=== PATIENT | female | born 1955 | race Caucasian/White ===

== ENCOUNTER 2021-10-21 12:09 | Inpatient (IN) | payer MEDICARE, OTHER ==
[2021-10-21 13:38] LABS: #Eosinphils 0.7 10x3/uL (0.0-0.5); #Monocytes 1.1 10x3/uL (0.0-1.1); #Neutrophils 10.6 10x3/uL (1.5-8.4); %Basophils 0.2 % (0.0-2.0); %Eosinophils 4.8 % (0.0-6.0); %Lymphocytes 8.8 % (18.0-47.0); %Monocytes 7.8 % (0.0-10.0); Hemoglobin 14.1 g/dL (12.0-15.5); Mean Corpuscular HGB CONC 33.6 g/dL (32.0-36.0); Mean Corpuscular Hemoglobin 29.5 pg (27.0-33.0); Mean Corpuscular Volume 87.9 fl (81.6-98.3); Mean Platelet Volume 11.6 fl (7.4-10.4); Platelet Count 244 10x3/uL (150-450); RBC Distribution Width 12.5 % (11.5-14.5); Red Blood Cell (RBC) Count 4.78 10x6/uL (3.90-5.03); White Blood Cell (WBC) Count 13.6 10x3/uL (3.5-10.5)
[2021-10-21 13:40] LABS: CK (CPK) 413 U/L (29-168); CRP (Inflammatory) Less than 0.50 mg/dL (= or < 0.5)
[2021-10-21] MEDS ORDERED: Piperacillin/Tazobactam 4.5 GM VIAL ONE (15:13)
[2021-10-21 15:54] LABS: ALT (SGPT) 80 U/L (8-55); AST (SGOT) 80 U/L (5-34); Albumin 3.8 g/dL (3.4-4.8); Alkaline Phosphatase 109 U/L (40-110); Anion Gap 16 mmol/L (10-20); BUN (Urea Nitrogen) 36 mg/dL (9.8-20.1); Bilirubin, Total 0.4 mg/dL (0.2-1.2); Calc. Creatinine Clearance 0 mL/min (70-130); Calcium 8.5 mg/dL (7.8-10.44); Carbon Dioxide 22 mmol/L (23-31); Chloride 108 mmol/L (98-107); Globulin 2.5 g/dL (2.4-3.5); Glucose 98 mg/dL (80-115); Potassium 4.1 mmol/L (3.5-5.1); Protein, Total 6.3 g/dL (5.8-8.1); Sodium 142 mmol/L (136-145)
[2021-10-21] MEDS ORDERED: Guaifenesin DM 100-10/5 ML UDCUP PO PRN (16:48)
[2021-10-21] MEDS ORDERED: Dextrose 50% Abboject 50 ML SYRINGE SLOW IVP PRN (16:51)
[2021-10-21] MEDS ORDERED: Senokot S 8.6-50 MG TAB PO PRN (16:51)
[2021-10-21] MEDS ORDERED: Acetaminophen 325 MG TAB PO PRN (16:51)
[2021-10-21] MEDS ORDERED: HumaLOG 300 UNITS/3 ML VIAL SC PRN ×2 (16:51)
[2021-10-21] MEDS ORDERED: Ondansetron ODT 4 MG TAB PO PRN (16:51)
[2021-10-21] MEDS ORDERED: Dextrose 5% in Water 1,000 ML IV PRN (16:51)
[2021-10-21 17:00] LABS: Lactic Acid 1.9 mmol/L (0.5-2.2)
[2021-10-21] MEDS ORDERED: Ventolin HFA Inhaler 60 PUFF INHALER INH PRN (17:47)
[2021-10-21 18:19] VITALS: BMI 25.0
[2021-10-21] MEDS: guaiFENesin ER 600 MG TAB PO SCH (20:33)
[2021-10-21] MEDS: Piperacillin/Tazobactam 3.375 GM in Sodium Chloride 0.9% 100 ML IVPB SCH (20:33)
[2021-10-21] MEDS: Calcium Carbonate 500 MG ChewTAB PO PRN (20:38)
[2021-10-21 22:36] LABS: SARS-CoV-2 NAA Rapid Test DETECTED (NotDetected)
[2021-10-22] MEDS: Piperacillin/Tazobactam 3.375 GM in Sodium Chloride 0.9% 100 ML IVPB SCH ×2 (03:49→09:50)
[2021-10-22] MEDS ORDERED: Vancomycin HCl 1 GM in Sodium Chloride 0.9% 250 ML 250 ML IVPB SCH (04:00)
[2021-10-22 04:19] LABS: #Eosinphils 0.7 10x3/uL (0.0-0.5); #Monocytes 0.8 10x3/uL (0.0-1.1); %Basophils 0.2 % (0.0-2.0); %Eosinophils 7.8 % (0.0-6.0); %Lymphocytes 21.8 % (18.0-47.0); %Monocytes 9.7 % (0.0-10.0); %Neutrophils 59.8 % (40.0-75.0); Hemoglobin 13.2 g/dL (12.0-15.5); Mean Corpuscular Hemoglobin 29.4 pg (27.0-33.0); Mean Corpuscular Volume 86.4 fl (81.6-98.3); Mean Platelet Volume 11.1 fl (7.4-10.4); Platelet Count 225 10x3/uL (150-450); RBC Distribution Width 12.5 % (11.5-14.5); Red Blood Cell (RBC) Count 4.49 10x6/uL (3.90-5.03); White Blood Cell (WBC) Count 8.4 10x3/uL (3.5-10.5)
[2021-10-22 04:46] LABS: ALT (SGPT) 30 U/L (8-55); AST (SGOT) 34 U/L (5-34); Albumin 3.2 g/dL (3.4-4.8); Alkaline Phosphatase 63 U/L (40-110); Anion Gap 13 mmol/L (10-20); BUN (Urea Nitrogen) 11 mg/dL (9.8-20.1); Bilirubin, Total 0.8 mg/dL (0.2-1.2); Calc. Creatinine Clearance 60 mL/min (70-130); Calcium 8.4 mg/dL (7.8-10.44); Carbon Dioxide 22 mmol/L (23-31); Chloride 111 mmol/L (98-107); Globulin 2.6 g/dL (2.4-3.5); Glucose 108 mg/dL (80-115); Magnesium 1.5 mg/dL (1.6-2.6); Potassium 3.3 mmol/L (3.5-5.1); Protein, Total 5.8 g/dL (5.8-8.1); Sodium 143 mmol/L (136-145)
[2021-10-22] MEDS ORDERED: Electrolyte Replacement Protocol 1 EACH FS PRN (09:15)
[2021-10-22] MEDS ORDERED: Sodium Chloride 0.9% 100 ML ONE (09:33)
[2021-10-22] MEDS: Enoxaparin Sodium 40 MG/0.4 ML SYRINGE SC SCH (09:51)
[2021-10-22] MEDS: Cholecalciferol 1,000 UNITS (25 MCG) TAB PO SCH (09:51)
[2021-10-22] MEDS: Zinc Sulfate 220 MG CAP PO SCH (09:51)
[2021-10-22] MEDS: Calcium Carbonate 500 MG ChewTAB PO PRN (09:52)
[2021-10-22] MEDS: guaiFENesin ER 600 MG TAB PO SCH ×2 (09:52→21:07)
[2021-10-22] MEDS: Ascorbic Acid 500 mg Chewable Tablet PO SCH (09:52)
[2021-10-22] MEDS ORDERED: Magnesium 2 GM/50 ML 2 GM in Premix Bag 1 BAG IVPB SCH ×2 (10:00→10:30)
[2021-10-22] MEDS ORDERED: Potassium Chloride 20 MEQ TAB PO SCH (10:00)
[2021-10-22 12:27] LABS: Hemoglobin A1c 6.7 % (4.0-6.0)
[2021-10-22 16:23] LABS: Potassium 4.2 mmol/L (3.5-5.1)
[2021-10-22] MEDS ORDERED: cefTRIAXone\\ROCEPHIN 1 GM in Sodium Chloride 0.9% 100 ML IVPB SCH (21:00)
[2021-10-23 05:34] LABS: CK (CPK) 153 U/L (29-168); Magnesium 1.7 mg/dL (1.6-2.6); Phosphorus 3.9 mg/dL (2.3-4.7)
[2021-10-23] MEDS ORDERED: Magnesium 2 GM/50 ML 2 GM in Premix Bag 1 BAG IVPB SCH (05:45)
[2021-10-23] MEDS: Cholecalciferol 1,000 UNITS (25 MCG) TAB PO SCH (09:23)
[2021-10-23] MEDS: Zinc Sulfate 220 MG CAP PO SCH (09:23)
[2021-10-23] MEDS: Ascorbic Acid 500 mg Chewable Tablet PO SCH (09:23)
[2021-10-23] MEDS: Enoxaparin Sodium 40 MG/0.4 ML SYRINGE SC SCH (09:23)
[2021-10-23] MEDS: guaiFENesin ER 600 MG TAB PO SCH ×2 (09:23→21:23)
[2021-10-23 15:24] LABS: Vancomycin, Trough 4.8 ug/mL
[2021-10-23] MEDS: Carvedilol 6.25 MG TAB PO SCH (21:23)
[2021-10-23] MEDS: Tamsulosin HCl 0.4 MG CAP PO SCH (21:23)
[2021-10-24] MEDS: Aspirin 81 mg Enteric Coated Tablet PO SCH (09:27)
[2021-10-24] MEDS: Carvedilol 6.25 MG TAB PO SCH ×2 (09:27→21:52)
[2021-10-24] MEDS: Ascorbic Acid 500 mg Chewable Tablet PO SCH (09:27)
[2021-10-24] MEDS: Cholecalciferol 1,000 UNITS (25 MCG) TAB PO SCH (09:27)
[2021-10-24] MEDS: Zinc Sulfate 220 MG CAP PO SCH (09:28)
[2021-10-24] MEDS: Enoxaparin Sodium 40 MG/0.4 ML SYRINGE SC SCH (09:28)
[2021-10-24] MEDS: guaiFENesin ER 600 MG TAB PO SCH ×2 (09:28→21:53)
[2021-10-24] MEDS: Ezetimibe 10 MG TAB PO SCH (09:28)
[2021-10-24] MEDS ORDERED: hydrALAZINE 20 MG/ML VIAL SLOW IVP PRN (13:47)
[2021-10-24] MEDS: Lisinopril 2.5 MG TAB PO SCH (21:52)
[2021-10-24] MEDS: Tamsulosin HCl 0.4 MG CAP PO SCH (21:52)
[2021-10-25] MEDS ORDERED: NIFEdipine XL 60 MG TAB PO SCH (09:00)
[2021-10-25] MEDS: Ascorbic Acid 500 mg Chewable Tablet PO SCH (10:23)
[2021-10-25] MEDS: Cholecalciferol 1,000 UNITS (25 MCG) TAB PO SCH (10:24)
[2021-10-25] MEDS: Aspirin 81 mg Enteric Coated Tablet PO SCH (10:24)
[2021-10-25] MEDS: Carvedilol 6.25 MG TAB PO SCH (10:24)
[2021-10-25] MEDS: Enoxaparin Sodium 40 MG/0.4 ML SYRINGE SC SCH (10:24)
[2021-10-25] MEDS: Zinc Sulfate 220 MG CAP PO SCH (10:25)
[2021-10-25] MEDS: guaiFENesin ER 600 MG TAB PO SCH (10:25)
[2021-10-25] MEDS: Lisinopril 2.5 MG TAB PO SCH (10:25)
[2021-10-25] MEDS: Ezetimibe 10 MG TAB PO SCH (10:25)
[2021-10-25 16:29] VITALS: BP 142/81; TEMP 98.5
== END 2021-10-25 19:50 | DRG 871 ==
LOC: CSHERS 12:09 → CSHTELE 16:40
PROVIDERS: ADMIT Internal Medicine; ATTEND Internal Medicine
PROC: 8E0ZXY6 Isolation (ICD-10-PCS; 2021-10-21)
PROC: 0T9B70Z Drainage of Bladder with Drainage Device, Via Natural or Artificial Opening (ICD-10-PCS; principal; 2021-10-23)
DX: A41.9 Sepsis, unspecified organism (principal); U07.1 COVID-19; J12.82 Pneumonia due to coronavirus disease 2019; N39.0 Urinary tract infection, site not specified; I69.351 Hemiplegia and hemiparesis following cerebral infarction affecting right dominant side; I25.10 Atherosclerotic heart disease of native coronary artery without angina pectoris; E86.0 Dehydration; N31.9 Neuromuscular dysfunction of bladder, unspecified; R26.89 Other abnormalities of gait and mobility; R74.01 Elevation of levels of liver transaminase levels; E11.43 Type 2 diabetes mellitus with diabetic autonomic (poly)neuropathy; R91.1 Solitary pulmonary nodule; R33.9 Retention of urine, unspecified; Z85.3 Personal history of malignant neoplasm of breast; Z88.8 Allergy status to other drugs, medicaments and biological substances; Z79.82 Long term (current) use of aspirin; Z79.899 Other long term (current) drug therapy; Z95.1 Presence of aortocoronary bypass graft; Z90.710 Acquired absence of both cervix and uterus; Z90.11 Acquired absence of right breast and nipple; Z87.891 Personal history of nicotine dependence
CPT/HCPCS: 36415; 36416; 70450; 71045; 71275; 80053; 80202; 82533; 82550; 82728; 83036; 83605; 83735; 83880; 84100; 84145; 84443; 84484; 85025; 86140; 87040; 87086; 93005; 94760; 96365; 96367; J0696; J1650; J1815; J2543; J3370; J3475; J3490; J7050; U0002